=== PATIENT | female | born 1985 | race African-American/Black ===

== ENCOUNTER 2017-03-21 19:47 | Emergency (ER) | payer MEDICAID ==
[~2017-03-21] VITALS: Ht 170.2 cm; Wt 61.0 kg
[2017-03-22 01:48] VITALS: BP 92/55
[2017-03-22] MEDS ORDERED: FOLI-43 PO (04:01)
[2017-03-22] MEDS ORDERED: FERR-63 PO (04:01)
[2017-03-22] MEDS ORDERED: PREN-88 PO (04:01)
== END 2017-03-22 02:25 | disposition left against medical advice (07) ==
LOC: ER 19:47 → L&D 03-22 02:10
PROVIDERS: ADMIT Obstetrics & Gynecology; ATTEND Obstetrics & Gynecology
DX: O12.02 Gestational edema, second trimester (principal); R60.0 Localized edema; O26.892 Other specified pregnancy related conditions, second trimester; R10.30 Lower abdominal pain, unspecified; O99.332 Smoking (tobacco) complicating pregnancy, second trimester; F17.200 Nicotine dependence, unspecified, uncomplicated; Z3A.24 24 weeks gestation of pregnancy
CPT/HCPCS: G0378